=== PATIENT | female | born 1950 | race Caucasian/White ===

== ENCOUNTER 2019-07-25 07:20 | Day surgery (SDC) | payer OTHER ==
[~2019-07-25] VITALS: Ht 154.9 cm; Wt 53.9 kg
[~2019-07-25 07:20] MED LIST: SODIUM CHLORIDE 0.9% 1,000 ML IV ONE
[2019-07-25] MEDS ORDERED: BENZOCAINE 20% 50 MCG/SPRAY 57 GM TP ONE (07:21)
[2019-07-25] MEDS ORDERED: ALBUTEROL SULFATE 2.5 MG/0.5 ML NEB SOLUTION NEB ONE (07:21)
[2019-07-25] MEDS ORDERED: LIDOCAINE 4% 50 ML SOLUTION TP ONE (07:21)
[2019-07-25] MEDS ORDERED: LIDOCAINE 2% 5 ML JELLY TP ONE (07:21)
[2019-07-25] MEDS ORDERED: MIDAZOLAM HCL 2 MG/2 ML VIAL ONE (07:57)
[2019-07-25] MEDS ORDERED: FentaNYL CITRATE-PF 100 MCG/2 ML VIAL ONE (07:58)
[2019-07-25 08:10] LABS: GLUCOMETER DEV NAME(LOC) SDS.; GLUCOSE,POINT OF CARE 84 MG/DL (70-110)
[2019-07-25] MEDS ORDERED: PRED10 PO (08:58)
[2019-07-25] MEDS ORDERED: GABA-531 PO (08:58)
[2019-07-25] MEDS ORDERED: METR160G TP (08:58)
[2019-07-25] MEDS ORDERED: PROM118S4 PO (08:58)
[2019-07-25] MEDS ORDERED: BUSP7.5T6 PO (08:58)
[2019-07-25] MEDS ORDERED: MONT10TA21 PO (08:58)
[2019-07-25] MEDS ORDERED: ALBU8HFA IH (08:58)
[2019-07-25] MEDS ORDERED: NICO-704 TD (08:58)
[2019-07-25] MEDS ORDERED: AMYL1CAP62 PO (08:58)
[2019-07-25] MEDS ORDERED: ASPI81 PO (08:58)
[2019-07-25] MEDS ORDERED: VENL-67 PO (08:58)
[2019-07-25] MEDS ORDERED: OMEP20 PO (08:58)
[2019-07-25] MEDS ORDERED: IRBE150T51 PO (08:58)
[2019-07-25] MEDS ORDERED: VARE1TAB22 PO (08:58)
[2019-07-25] MEDS ORDERED: NUT.237L53 PO (08:58)
[2019-07-25] MEDS ORDERED: DICL2100G TP (08:58)
[2019-07-25] MEDS ORDERED: FLUT16H NASAL (08:58)
[2019-07-25] MEDS ORDERED: LEVO88TA4 PO (08:58)
[2019-07-25] MEDS ORDERED: SIMV-260 PO (08:58)
[2019-07-25] MEDS ORDERED: PRIM50 PO (08:58)
[2019-07-25] MEDS ORDERED: MEGE400O4 PO (08:58)
[2019-07-25] MEDS ORDERED: BACL10TA PO (08:58)
[2019-07-25] MEDS ORDERED: TIOT4MIS2 PO (08:58)
[2019-07-25] MEDS ORDERED: CHOL100034 PO (08:58)
[2019-07-25] MEDS ORDERED: ALBU2.5V2 IH (08:58)
[2019-07-25] MEDS ORDERED: ONDA4 PO (08:58)
[2019-07-25] MEDS ORDERED: FENO134C PO (08:58)
[2019-07-25] MEDS ORDERED: BUDE10.2 IH (08:58)
[2019-07-25] MEDS ORDERED: PERCT10 PO (08:58)
[2019-07-25] MEDS ORDERED: MethylPREDNISolone SOD SUCC 125 MG/2 ML VIAL IVP ONE (09:00)
[2019-07-25] MEDS ORDERED: MethylPREDNISolone SOD SUCC 125 MG/2 ML VIAL ONE (09:17)
[2019-07-25] MEDS ORDERED: OXYGEN THERAPY IH SCH (20:00)
== END 2019-07-25 10:20 | disposition home or self-care (01) ==
LOC: SURGERY 07:20
PROVIDERS: ATTEND Internal Medicine Critical Care Medicine
DX: J38.4 Edema of larynx (principal); B37.0 Candidal stomatitis; J98.8 Other specified respiratory disorders; J44.9 Chronic obstructive pulmonary disease, unspecified; E03.9 Hypothyroidism, unspecified; M19.90 Unspecified osteoarthritis, unspecified site; Z87.01 Personal history of pneumonia (recurrent); Z87.891 Personal history of nicotine dependence; Z79.899 Other long term (current) drug therapy; Z90.49 Acquired absence of other specified parts of digestive tract; Z98.890 Other specified postprocedural states
CPT/HCPCS: 31623; 31624; 71045; 82962; 87015; 87070; 87101; 87205; 87206; 87220; 88108; 88312; J2250; J2930; J3010; J7030

== ENCOUNTER 2019-12-17 06:41 | Day surgery (SDC) | payer OTHER ==
[~2019-12-17] VITALS: Ht 154.9 cm; Wt 60.0 kg
[~2019-12-17 06:41] MED LIST changes: +ALBU2.5V2 IH; +ALBU8HFA IH; +AMYL1CAP62 PO; +ASPI-728 PO; +BACL10TA PO; +BUDE10.2 IH; +BUSP7.5T6 PO; +CHOL100034 PO; +DICL2100G TP; +FENO134C PO; +FLUT16H NASAL; +GABA-531 PO; +IRBE150T51 PO; +LEVO88TA4 PO; +MEGE400O4 PO; +METR160G TP; +MONT10TA21 PO; +NICO-704 TD; +NUT.237L53 PO; +OMEP20 PO; +ONDA-104 PO; +OXYC-601 PO; +PRED10 PO; +PRIM50 PO; +PROM118S4 PO; +SIMV-260 PO; +SODIUM CHLORIDE 0.9% 1,000 ML ONE; +TIOT4MIS2 PO; +VARE1TAB22 PO; +VENL-67 PO
[2019-12-17] MEDS ORDERED: ALBUTEROL SULFATE 2.5 MG/0.5 ML NEB SOLUTION NEB ONE (06:42)
[2019-12-17] MEDS ORDERED: LIDOCAINE 2% 30 ML JELLY TP ONE (06:42)
[2019-12-17] MEDS ORDERED: BENZOCAINE 20% 50 MCG/SPRAY 57 GM TP ONE (06:42)
[2019-12-17] MEDS ORDERED: FentaNYL CITRATE-PF 100 MCG/2 ML VIAL ONE (06:59)
[2019-12-17] MEDS ORDERED: MIDAZOLAM HCL 2 MG/2 ML VIAL ONE (06:59)
[2019-12-17] MEDS ORDERED: BENZ200C53 PO (07:58)
[2019-12-17] MEDS ORDERED: IBAN150T21 PO (07:58)
[2019-12-17] MEDS ORDERED: DULO30CA2 PO (07:58)
[2019-12-17] MEDS ORDERED: FERR-89 PO (07:58)
[2019-12-17] MEDS ORDERED: MethylPREDNISolone SOD SUCC 125 MG/2 ML VIAL IVP ONE (09:15)
[2019-12-17] MEDS ORDERED: MethylPREDNISolone SOD SUCC 125 MG/2 ML VIAL ONE (09:34)
[2019-12-17] MEDS ORDERED: OXYGEN THERAPY IH SCH (20:00)
== END 2019-12-17 11:15 | disposition home or self-care (01) ==
LOC: SURGERY 06:41
PROVIDERS: ATTEND Internal Medicine Critical Care Medicine
DX: R05 Cough (principal); R91.1 Solitary pulmonary nodule; R04.2 Hemoptysis; J34.89 Other specified disorders of nose and nasal sinuses; J98.8 Other specified respiratory disorders; J38.4 Edema of larynx; B37.0 Candidal stomatitis; R19.09 Other intra-abdominal and pelvic swelling, mass and lump; I10 Essential (primary) hypertension; E78.00 Pure hypercholesterolemia, unspecified; F34.9 Persistent mood [affective] disorder, unspecified; F32.9 Major depressive disorder, single episode, unspecified; F41.9 Anxiety disorder, unspecified; J34.9 Unspecified disorder of nose and nasal sinuses; E03.9 Hypothyroidism, unspecified; Z87.01 Personal history of pneumonia (recurrent); Z79.899 Other long term (current) drug therapy
CPT/HCPCS: 31623; 31624; 71045; 87070; 87101; 87206; 87220; 88184; 88185; J2250; J2930; J3010; J7030; 87015; 87205; 88108; 88312

== ENCOUNTER 2021-03-28 05:45 | Day surgery (SDC) | payer OTHER ==
[2021-03-25 11:59] LABS: COVID AG,FIA SOURCE NASOPHARYNGEAL
[~2021-03-28] VITALS: Ht 154.9 cm; Wt 46.8 kg
[~2021-03-28 05:45] MED LIST changes: +ASPI-1450 PO; -ASPI-728 PO; +BENZ200C53 PO; -BUSP7.5T6 PO; +BUSP7.5T7 PO; +DULO30CA96 PO; +FERR-89 PO; +GABA-1181 PO; -GABA-531 PO; +IBAN150T21 PO; +MONT-35 PO; -MONT10TA21 PO; -NICO-704 TD; +NICO-803 TD; -PROM118S4 PO; +PROM118S5 PO; -SODIUM CHLORIDE 0.9% 1,000 ML IV ONE; -SODIUM CHLORIDE 0.9% 1,000 ML ONE
[2021-03-28] MEDS ORDERED: SODIUM CHLORIDE 0.9% 1,000 ML ONE (06:04)
[2021-03-28] MEDS ORDERED: SODIUM CHLORIDE 0.9% 1,000 ML IV ONE (06:30)
[2021-03-28] MEDS ORDERED: FentaNYL CITRATE PF 100 MCG/2 ML VIAL ONE (06:48)
[2021-03-28] MEDS ORDERED: MIDAZOLAM HCL 5 MG/ML VIAL ONE (06:49)
[2021-03-28] MEDS ORDERED: MethylPREDNISolone SOD SUCC 125 MG/2 ML VIAL ONE (08:58)
[2021-03-28] MEDS ORDERED: MethylPREDNISolone SOD SUCC 125 MG/2 ML VIAL IVP ONE (09:00)
[2021-03-28] MEDS ORDERED: OXYGEN THERAPY IH SCH (20:00)
== END 2021-03-28 10:45 | disposition home or self-care (01) ==
LOC: SURGERY 05:45
PROVIDERS: ATTEND Internal Medicine Critical Care Medicine
DX: J38.4 Edema of larynx (principal); B37.0 Candidal stomatitis; J44.9 Chronic obstructive pulmonary disease, unspecified; E03.9 Hypothyroidism, unspecified; E78.00 Pure hypercholesterolemia, unspecified; F41.9 Anxiety disorder, unspecified; F32.9 Major depressive disorder, single episode, unspecified; Z90.49 Acquired absence of other specified parts of digestive tract; Z98.890 Other specified postprocedural states; Z87.01 Personal history of pneumonia (recurrent); Z88.2 Allergy status to sulfonamides; Z79.82 Long term (current) use of aspirin
CPT/HCPCS: 31623; 31624; 71045; 87015; 87070; 87077; 87101; 87186; 87205; 87206; 87220; 87426; 88108; 88184; 88185; 88312; C9803; J2250; J2930; J3010; J7030